=== PATIENT | male | born 1950 | race Hispanic/Latino ===

== ENCOUNTER 2020-10-09 14:37 | Emergency (ER) | payer MEDICARE ==
[2020-10-09 14:51] VITALS: BP 0/0
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
[2020-10-09] MEDS ORDERED: SODIUM BICARB 8.4% 50 MEQ/50 ML SYRINGE IV ONE (16:08)
[2020-10-09] MEDS ORDERED: EPINEPHrine 1 MG/10 ML SYRINGE ONE (16:08)
== END 2020-10-09 17:30 ==
LOC: ED 14:37
DX: I46.9 Cardiac arrest, cause unspecified (principal)
CPT/HCPCS: 92950; 99285; J0171